=== PATIENT | male | born 1935 | race Caucasian/White ===

== ENCOUNTER 2017-04-11 14:30 | Outpatient (CLI) | payer MEDICARE ==
--- NOTE | 2017-04-12 16:17 | XRAY Report ---
CHEST, TWO VIEWS: 04/11/2017 HISTORY: Wheezing and cough. COMPARISON: 02/08/2016 FINDINGS: The heart size is normal. The lungs are clear. There is no pleural fluid or pneumothorax. There is degenerative change in the thoracic spine with an accentuated thoracic kyphosis. The aorta is tortuous. IMPRESSION: CLEAR LUNGS. NO ACUTE FINDINGS OR SIGNIFICANT INTERVAL CHANGE SINCE 02/08/2016. JOB #: [id number] EXT JOB #: [id number] [facility]
== END 2017-04-11 14:31 | disposition home or self-care (01) ==
LOC: DI.S 14:30
PROVIDERS: ATTEND Nurse Practitioner Family
DX: R06.02 Shortness of breath (principal)
CPT/HCPCS: 71020

== ENCOUNTER 2017-05-13 00:05 | Emergency (ER) | payer MEDICARE ==
[2017-05-13 00:50] LABS: BASOPHILS # (AUTO) 0.2 10^3/uL (0.0-0.1); BASOPHILS % (AUTO) 2.5 %; EOSINOPHILS # (AUTO) 0.4 10^3/uL (0.0-0.7); EOSINOPHILS % (AUTO) 4.5 %; HGB - HEMOGLOBIN 13.3 g/dL (14.0-18.0); LYMPHOCYTES % (AUTO) 20.4 %; MEAN CORPUSCULAR HEMOGLOBIN 28.3 pg (27.0-31.0); MEAN CORPUSCULAR HGB CONC 33.7 g/dL (32.0-36.0); MEAN PLATELET VOLUME 7.7 fL (7.4-11.4); MONOCYTES # (AUTO) 0.8 10^3/uL (0.0-1.0); MONOCYTES % (AUTO) 8.2 %; NEUTROPHILS # (AUTO) 6.1 10^3/uL (1.5-6.6); NEUTROPHILS % (AUTO) 64.4 %; PLT - PLATELET COUNT 178 10^3/uL (130-450); RED BLOOD COUNT 4.68 10^6/uL (4.70-6.10); WHITE BLOOD COUNT 9.6 x10^3/uL (4.8-10.8)
[2017-05-13 01:02] LABS: ALBUMIN 3.7 g/dL (3.2-5.5); ALBUMIN/GLOBULIN RATIO 1.1 (1.0-2.2); BILIRUBIN,TOTAL 0.7 mg/dL (0.2-1.0); CALCIUM 8.3 mg/dL (8.5-10.3); CREATININE 1.6 mg/dL (0.6-1.2); URIC ACID 9.6 mg/dL (2.6-7.2)
[2017-05-13] MEDS ORDERED: INDOMETHACIN 25 MG CAPSULE PO STA (01:12)
--- NOTE | 2017-05-13 01:31 | ED Physician Documentation ---
PD HPI LOWER EXT INJURY - Stated complaint Stated Complaint: KRISTIN FOOT SWELLING - Chief complaint Chief Complaint: Ext Problem - History obtained from History obtained from: Patient - History of Present Illness PD HPI LOW EXT INJURY LOCATION: Left, Foot, Toe Where injury occurred: Home Timing - onset: Yesterday Timing - details: Gradual onset, Still present Worsened by: Moving, Palpating Similar symptoms before: Work up / diagnostics, Treatment Recently seen: Not recently seen - Additional information Additional information: Patient is and 82 year old male with a history of gout who is presenting to the emergency department for right foot pain and swelling, especially in the first digit. patient states that it started yesterday and has become progressively worse. Patient states that he thought it might be gout but the swelling in his foot was worse than he had seen before. patient denies any fever or trauma. Review of Systems Constitutional: denies: Fever, Chills Eyes: reports: Reviewed and negative Ears: reports: Reviewed and negative Nose: reports: Reviewed and negative Cardiac: denies: Chest pain / pressure, Palpitations, Calf pain Respiratory: denies: Dyspnea, Cough, Wheezing GI: denies: Abdominal Pain, Nausea, Vomiting : reports: Reviewed and negative Skin: reports: Reviewed and negative Musculoskeletal: reports: Joint pain, Extremity swelling, Joint swelling Neurologic: denies: Generalized weakness, Focal weakness, Numbness Immunocompromised: denies: Immunocompromised PD PAST MEDICAL HISTORY - Past Medical History Past Medical History: Yes Cardiovascular: Hypertension, High cholesterol, Angina Respiratory: None Neuro: None Endocrine/Autoimmune: Type 2 diabetes GI: GERD, Other : None HEENT: None, Chronic vision loss Psych: None Musculoskeletal: Other Derm: Rosacea - Past Surgical History Past Surgical History: Yes General: Colonoscopy, Other Ortho: Spine surgery HEENT: Tonsil/Adenoidectomy - Present Medications Home Medications: Ambulatory Orders Medication Instructions Recorded Confirmed Aspirin [Aspir 81] 81 mg PO DAILY 05/15/15 05/19/15 Atorvastatin [Lipitor] 80 mg PO DAILY 05/15/15 05/19/15 Insulin Glargine,Hum.rec.anlog 30 units SQ DAILY 05/15/15 05/19/15 [Lantus Solostar] Insulin Lispro [Humalog] 7 units SQ QID 05/15/15 05/19/15 Lisinopril 20 mg PO DAILY 05/15/15 05/19/15 Omeprazole 20 mg PO DAILY 05/15/15 05/19/15 hydroCHLOROthiazide 12.5 mg PO DAILY 05/15/15 05/19/15 [Hydrochlorothiazide] Moxifloxacin HCl [Vigamox] 1 drop LEFTEYE DAILY 02/08/16 02/08/16 Nepafenac [Ilevro] 1 drop EACHEYE DAILY 02/08/16 02/08/16 prednisoLONE 1% OPHTH DROPS [Pred 1 drops EACHEYE .DAILY-BID 02/08/16 02/08/16 Forte 1% Ophth Drops] Acetaminophen [Tylenol] 650 mg PO Q4HR PRN #0 tablet 02/09/16 Prednisolone 1% Ophth Drops [Pred 1 drops RIGHTEYE DAILY 02/09/16 Forte 1% Ophth Drops] Indomethacin 50 mg PO TID #14 capsule 05/13/17 - Allergies Allergies/Adverse Reactions: Allergies Allergy/AdvReac Type Severity Reaction Status Date / Time Beta-Blockers Allergy Unknown Verified 05/13/17 00:20 (Beta-Adrenergic Bloc ezetimibe [From Vytorin] Allergy Unknown Verified 05/13/17 00:20 simvastatin [From Vytorin] Allergy Unknown Verified 05/13/17 00:20 - Social History Does the pt smoke?: No Smoking Status: Never smoker Does the pt drink ETOH?: No Does the pt have substance abuse?: No - Immunizations Immunizations are current?: Yes - POLST Patient has POLST: No PD ED PE NORMAL - Vitals Vital signs reviewed: Yes - General General: Alert and oriented X 3, Well developed/nourished - HEENT HEENT: Atraumatic, PERRL - Neck Neck: Supple, no meningeal sign - Cardiac Cardiac: RRR, No murmur - Respiratory Respiratory: No respiratory distress - Abdomen Abdomen: Soft - Neuro Neuro: Alert and oriented X 3, No motor deficit, No sensory deficit - Psych Psych: Normal mood PD ED PE EXPANDED - Extremities Extremities: Left foot (swelling of left foot), Left toe(s) (erythema, tenderness and swelling of 1st digit.) Results - Vitals Vitals: Vital Signs - 24 hr 05/13/17 00:18 Temperature 36.6 C Heart Rate 61 Respiratory 17 Rate Blood Pressure 169/63 H O2 Saturation 96 Oxygen O2 Source Room air - Labs Labs: Laboratory Tests 05/13/17 05/13/17 00:45 00:45 WBC 9.6 RBC 4.68 L Hgb 13.3 L Hct 39.3 L MCV 84.0 MCH 28.3 MCHC 33.7 RDW 15.0 Plt Count 178 MPV 7.7 Neut # 6.1 Lymph # 2.0 Gillespie # 0.8 Eos # 0.4 Baso # 0.2 H Absolute Nucleated RBC 0.00 Nucleated RBC % 0.0 Sodium 135 Potassium 4.2 Chloride 106 Carbon Dioxide 22 Anion Gap 7.0 BUN 38 H Creatinine 1.6 H Estimated GFR (MDRD) 42 L Glucose 126 H Uric Acid 9.6 H Calcium 8.3 L Total Bilirubin 0.7 AST 17 ALT 15 Alkaline Phosphatase 102 Total Protein 7.0 Albumin 3.7 Globulin 3.3 Albumin/Globulin Ratio 1.1 Lipase 43 PD MEDICAL DECISION MAKING - ED course Complexity details: reviewed old records, reviewed results, re-evaluated patient , considered differential, d/w patient ED course: Patient was seen and examined at bedside. labs were drawn. Patient's lab and physical exam findings were consistent with gout. patient was treated with indomethacin. patient required no further work up at this time and was stable for discharge with outpatient follow up. Departure - Departure Disposition: Home, Self Care Clinical Impression: Gout attack Condition: Good Instructions: ED Diet Gout, Gout Attack Tx Follow-Up: SHLOMO PERRIN MD [Primary Care Provider] - Within 3 Days Prescriptions: Indomethacin 50 mg PO TID #14 capsule Comments: Your symptoms today are being caused by gout. You have been started on a nsaid but with your history of diabetes you will have to limit the duration for which you are using it. You should stay well hydrated and avoid red meats and alcohol. You should call your doctor on monday to schedule a follow up appointment. You should keep your legs elevated to help reduce the swelling.
[2017-05-13 01:47] VITALS: BP 151/80
== END 2017-05-13 01:47 | disposition home or self-care (01) ==
LOC: ED 00:05
DX: M10.9 Gout, unspecified (principal); I10 Essential (primary) hypertension; E78.00 Pure hypercholesterolemia, unspecified; Z79.82 Long term (current) use of aspirin
CPT/HCPCS: 36415; 80053; 83690; 84550; 85025; 99283; A9270

== ENCOUNTER 2018-08-23 15:48 | Outpatient (CLI) | payer MEDICARE ==
--- NOTE | 2018-08-24 08:08 | Ultrasound Report ---
Reason: HEADACHE Procedure Date: 08/23/2018 Accession Number: [id number] / [id number] Procedure: US - Carotid Doppler Complete CPT Code: FULL RESULT: EXAM: BILATERAL CAROTID AND VERTEBRAL ARTERY DUPLEX DOPPLER ULTRASOUND: EXAM DATE: 08/23/2018 03:30 PM CLINICAL HISTORY: Headache. COMPARISON: CAROTID DOPPLER COMPLETE 02/08/2016 4:02 PM. TECHNIQUE: Grayscale imaging, color Doppler, and duplex spectral Doppler were used to evaluate the carotid and vertebral arteries bilaterally. Static images were obtained. FINDINGS: No obstructing plaque is identified in the right or left common or internal carotid arteries. Normal antegrade flow is present in bilateral vertebral arteries. VELOCITIES (cm/sec): RIGHT: CCA mid: PSV 76.2 cm/sec CCA dist: PSV 75.6 cm/sec ICA prox: PSV 58.1 cm/sec, EDV 13.5 cm/sec ICA mid: PSV 90.6 cm/sec, EDV 25.7 cm/sec ICA dist: PSV 70 cm/sec, EDV 18.3 cm/sec ECA: PSV 108.1 cm/sec Vert: PSV 41.2 cm/sec ICA/CCA: 1.2 LEFT: CCA mid: PSV 90.2 cm/sec CCA dist: PSV 78.4 cm/sec ICA prox: PSV 257.1 cm/sec, EDV 49.7 cm/sec ICA mid: PSV 134.2 cm/sec, EDV 20 cm/sec ICA dist: PSV 93 cm/sec, EDV 18 cm/sec ECA: PSV 176.3 cm/sec Vert: PSV 33.6 cm/sec ICA/CCA: 3.3 ICA diameter stenosis: Right: <50% by velocity and <70% by NASCET criteria. Left: <50% by velocity and greater than 70% by NASCET criteria. IMPRESSION: 1. There is a hemodynamically significant left internal carotid stenosis which is greater than 70%. 2. No evidence of extracranial hemodynamically stenosis of the right extracranial carotid system. 3. Bilateral vertebral artery antegrade flow. General Recommendations: Stenosis =50% ICA - Follow-up ultrasound 6-12 months Stenosis <50% ICA - High Risk Patient with plaque - Follow-up ultrasound 1-2 years Normal Study but High Risk Patient - Follow-up ultrasound 3-5 years Management recommendations and diagnostic criteria are based on current IAC endorsed standards in Carotid Artery Stenosis: Grayscale and Doppler Ultrasound Diagnosis. Validated velocity measurements with angiographic measurements and velocity criteria are extrapolated from diameter data as defined by the Society of Radiologists in Ultrasound Consensus Conference Radiology 2003; 229;340-346. RADIA
== END 2018-08-23 15:49 | disposition home or self-care (01) ==
LOC: DI 15:48
PROVIDERS: ATTEND Internal Medicine
DX: I65.22 Occlusion and stenosis of left carotid artery (principal); R51 Headache
CPT/HCPCS: 93880

== ENCOUNTER 2018-11-12 07:44 | Outpatient (CLI) | payer MEDICARE ==
[2018-11-12] MEDS ORDERED: IOVERSOL 320 100 ML VIAL IVP ONE ×2 (07:57→09:07)
[2018-11-12 08:11] LABS: CREATININE 1.7 mg/dL (0.6-1.2)
--- NOTE | 2018-11-12 11:02 | CT Report ---
Reason: OCCLUSION AND STENOSIS OF UNSPECIFIED CAROTID DOROTEO Procedure Date: 11/12/2018 Accession Number: [id number] / [id number] Procedure: CT - ANGIO NECK W/WO CPT Code: FULL RESULT: EXAM: CT ANGIOGRAM HEAD AND NECK. CT SCAN HEAD WITHOUT AND WITH CONTRAST. EXAM DATE: 11/12/2018 08:40 AM. CLINICAL HISTORY: Occlusion and stenosis of unspecified carotid artery. Severe left internal carotid artery stenosis at carotid bifurcation noted on Doppler ultrasound. COMPARISON: HEAD W/O 02/08/2016 7:39 PM. BRAIN W/O 02/08/2016 5:50 PM. BRAIN ANGIO W/O 02/08/2016 5:24 PM. CAROTID DOPPLER COMPLETE 08/23/2018 3:13 PM. TECHNIQUE: Routine axial helical CTA imaging was performed from the aortic arch through the [place] of [place]. Routine axial CT imaging of the head was performed prior to and following contrast administration. Reconstructions: Routine multiplanar 3D MIP reconstructions. IV contrast: OPTI 320 80 mL. NASCET Criteria are used for stenosis measurements. In accordance with CT protocol optimization, one or more of the following dose reduction techniques were utilized for this exam: automated exposure control, adjustment of mA and/or KV based on patient size, or use of iterative reconstructive technique. FINDINGS: CT SCAN HEAD: Parenchyma: No intraparenchymal hemorrhage. No evidence of mass, midline shift, or CT findings of acute infarction. Hines-white differentiation is distinct. Mild patchy white matter hypodensity is noted. No abnormal intracranial enhancement. Extra-axial Spaces: Normal for age. No subdural or epidural collections identified. Ventricles: Normal in size and position. Sinuses and Orbits: Imaged paranasal sinuses, orbits, and mastoids show no significant abnormality. Bones: No evidence of fracture or calvarial defect. Other: Mild atherosclerotic calcification is seen involving intracranial ICA and vertebral arteries. CT ANGIOGRAM EXTRACRANIAL CIRCULATION: Moderate tortuosity with atherosclerotic intimal irregularity and calcification is seen in the partially visualized aortic arch. Note is made of conjoined origin of right brachiocephalic and left common carotid arteries. Mild tortuosity and atherosclerotic calcification is seen involving the great vessels off the arch. The great vessels are patent. Right Carotid: The common carotid, internal carotid, and external carotid arteries are widely patent. No dissection. Punctate atherosclerotic calcification is seen in the distal CCA without significant stenosis. Mild atherosclerotic intimal thickening and calcification is seen at the CCA bifurcation and proximal ICA, without significant stenosis. Left Carotid: The CCA is patent. Marked atherosclerotic intimal thickening with moderate peripheral calcification is seen at the CCA bifurcation and proximal ICA. Luminal irregularity and narrowing to 1.2 mm is seen. Severe, 75%, stenosis is present. No dissection. The ECA is patent. Vertebrals: The vertebral arteries are codominant. Right vertebral artery: Mild intimal thickening and punctate calcification is seen at the origin. Mild, 35%, stenosis is present. Otherwise patent. No dissection. Left vertebral artery: Mild atherosclerotic intimal thickening is seen at the origin. Mild, 40%, stenosis is seen. Otherwise patent. No dissection. CT ANGIOGRAM INTRACRANIAL CIRCULATION: Unremarkable. No stenoses or aneurysms of the visualized vessels. No large vessel occlusion. Bilateral ICA: Mild to moderate atherosclerotic calcification is seen in the cavernous and proximal supracavernous ICA. There likely is mild stenosis. No significant stenosis is present. Right vertebral artery: Mild atherosclerotic intimal thickening and irregularity with punctate calcification is seen in the proximal to mid V4 segment. Moderate, 55%, stenosis is seen. The right pica arises distal to this and is patent. Note is made of fenestrated or duplicated distal V4 segment extending over an approximate 10 mm length. Left vertebral artery: Mild atherosclerotic calcification is seen in the mid V4 segment. Mild, 40%, stenosis is present. The left pica arises distal to this and is patent. Bilateral P-comm are patent. The right is larger than the left. The A-comm is small in caliber and unremarkable. The dural venous sinuses are patent. Other: The visualized bones, soft tissues, and lung apices are unremarkable. Mild spondylosis is noted throughout the cervical spine. IMPRESSION: CT SCAN HEAD: 1. No acute intracranial abnormality. No abnormal enhancement. 2. Patchy white matter hypodensity is seen in the cerebral hemispheres. This is nonspecific. This can be seen secondary to small vessel ischemic change. CT ANGIOGRAM NECK: 1. Moderate tortuosity and atherosclerotic change involving the aortic arch. 2. Right carotid circulation: Patent. Mild atherosclerotic change without significant stenosis. 3. Left carotid circulation: Moderate to marked atherosclerotic change. Severe, 75%, stenosis in the proximal ICA. 4. Bilateral vertebral arteries: Codominant. Mild, 35%-40%, stenosis at the origin. Otherwise patent. CT ANGIOGRAM HEAD: 1. Unremarkable CTA of the head. No aneurysm. No significant stenosis. No large vessel occlusion. 2. Bilateral carotid arteries: Atherosclerotic change. Mild stenosis. 3. Right vertebral artery: Atherosclerotic change at junction of proximal and mid V4 segment. Moderate, 55%, stenosis. Note is made of fenestrated or duplicated distal V4 segment. 4. Left vertebral artery: Atherosclerotic change in mid V4 segment. Mild, 40%, stenosis. RADIA
== END 2018-11-12 07:45 | disposition home or self-care (01) ==
LOC: DI 07:44
PROVIDERS: ATTEND Internal Medicine
DX: I25.10 Atherosclerotic heart disease of native coronary artery without angina pectoris (principal); I65.22 Occlusion and stenosis of left carotid artery; I65.01 Occlusion and stenosis of right vertebral artery; Q25.46 Tortuous aortic arch
CPT/HCPCS: 36415; 70496; 70498; 82565; Q9967

== ENCOUNTER 2019-10-11 09:16 | Outpatient (CLI) | payer MEDICARE ==
--- NOTE | 2019-10-11 12:29 | XRAY Report ---
Reason: PAIN OF RIGHT SHOULDER JOINT Procedure Date: 10/11/2019 Accession Number: [id number] / [id number] Procedure: XRS - Shoulder 3 View RT CPT Code: Final Report FULL RESULT: PROCEDURE: Shoulder 3 View RT INDICATIONS: PAIN OF RIGHT SHOULDER JOINT TECHNIQUE: 3 views of the right shoulder were obtained. COMPARISON: None. FINDINGS: No visualized fractures or dislocations. Sebaceous osseous lesions. There is severe acromioclavicular degenerative narrowing. Slight humeral head deformity is present suggestive of prior Hill-Sachs injury. IMPRESSION: Degenerative changes without visualized acute fracture. Reviewed by: Zahra Ortega MD on 10/11/2019 12:27 PM PDT Approved by: Zahra Ortega MD on 10/11/2019 12:27 PM PDT Station ID: [id number]
== END 2019-10-11 09:17 | disposition home or self-care (01) ==
LOC: DI.S 09:16
PROVIDERS: ATTEND Nurse Practitioner Family
DX: M19.011 Primary osteoarthritis, right shoulder (principal)

== ENCOUNTER 2019-11-03 08:26 | Outpatient (CLI) | payer MEDICARE | END 2019-11-03 08:27 | disposition critical access hospital (66) | LOC: EMS 08:26 | PROVIDERS: ATTEND Surgery | DX: R53.1 Weakness (principal) | CPT/HCPCS: A0425; A0429 ==

== ENCOUNTER 2019-11-03 09:04 | Emergency (ER) | payer MEDICARE ==
--- NOTE | 2019-11-03 09:14 | ED Physician Documentation ---
PD HPI FOCAL NEURO - Stated complaint Stated Complaint: TIA - History obtained from History obtained from: Patient - History of Present Illness Timing - onset: Enter time (829), Today Timing - duration: Minutes Timing - details: Abrupt onset, Now resolved Severity of deficit: Moderate Weakness: Face, Arm, Hand, Leg, Foot, Right Numbness: No: Face, Arm, Hand, Leg, Foot, Right, Left Associated symptoms: No: Headache, Nausea / vomiting, Seizure, Syncope, Fall, Head injury, Chest pain, Neck pain, Back pain, Fever Contributing factors: negative: Anticoagulated Baseline status: positive: A&OX3, ambulatory, indep Similar symptoms before: Has not had sx before Recently seen: Not recently seen - Additional information Additional information: Previously well 84-year-old male was well this morning when he awoke at 730 he got into a hot shower when he got out of the shower he began to try to shave and realized that he had a deficit of movement in his right arm and you had some difficulty walking. He did not have difficulty speaking. He called 911 and after arrival to of the ambulance his symptoms began to improve. He arrives with symptoms nearly resolved. He indicates he has never had these specific symptoms previously. He has been diagnosed at one time with a TIA he believes this was related to his use of a beta-kelly and he spent some time in the intensive care unit. Review of Systems Constitutional: denies: Fever Eyes: denies: Decreased vision Ears: denies: Ear pain Nose: denies: Rhinorrhea / runny nose, Congestion Throat: denies: Sore throat Cardiac: denies: Chest pain / pressure, Palpitations Respiratory: denies: Dyspnea, Cough GI: denies: Abdominal Pain, Nausea, Vomiting : denies: Dysuria, Frequency Skin: denies: Rash Musculoskeletal: denies: Neck pain, Back pain, Extremity pain Neurologic: reports: Focal weakness. denies: Generalized weakness, Numbness, Difficulty speaking, Altered mental status, Headache, Head injury, LOC PD PAST MEDICAL HISTORY - Past Medical History Cardiovascular: Hypertension, High cholesterol, Angina Respiratory: None Endocrine/Autoimmune: Type 2 diabetes GI: GERD, Other : None HEENT: None, Chronic vision loss Psych: None Musculoskeletal: Other Derm: Rosacea - Past Surgical History Past Surgical History: Yes General: Colonoscopy, Other Ortho: Spine surgery HEENT: Tonsil/Adenoidectomy - Present Medications Home Medications: Ambulatory Orders Medication Instructions Recorded Confirmed Aspirin [Aspir 81] 81 mg PO DAILY 05/15/15 05/19/15 Atorvastatin [Lipitor] 80 mg PO DAILY 05/15/15 05/19/15 Insulin Glargine,Hum.rec.anlog 30 units SQ DAILY 05/15/15 05/19/15 [Lantus Solostar] Insulin Lispro [Humalog] 7 units SQ QID 05/15/15 05/19/15 Lisinopril 20 mg PO DAILY 05/15/15 05/19/15 Omeprazole 20 mg PO DAILY 05/15/15 05/19/15 hydroCHLOROthiazide 12.5 mg PO DAILY 05/15/15 05/19/15 [Hydrochlorothiazide] Moxifloxacin HCl [Vigamox] 1 drop LEFTEYE DAILY 02/08/16 02/08/16 Nepafenac [Ilevro] 1 drop EACHEYE DAILY 02/08/16 02/08/16 prednisoLONE 1% OPHTH DROPS [Pred 1 drops EACHEYE .DAILY-BID 02/08/16 02/08/16 Forte 1% Ophth Drops] Acetaminophen [Tylenol] 650 mg PO Q4HR PRN #0 tablet 02/09/16 Prednisolone 1% Ophth Drops [Pred 1 drops RIGHTEYE DAILY 02/09/16 Forte 1% Ophth Drops] Indomethacin 50 mg PO TID #14 capsule 05/13/17 - Allergies Allergies/Adverse Reactions: Allergies Allergy/AdvReac Type Severity Reaction Status Date / Time Beta-Blockers Allergy Unknown Verified 11/03/19 09:15 (Beta-Adrenergic Bloc ezetimibe [From Vytorin] Allergy Unknown Verified 11/03/19 09:15 simvastatin [From Vytorin] Allergy Unknown Verified 11/03/19 09:15 - Social History Does the pt smoke?: No Smoking Status: Never smoker Does the pt drink ETOH?: No Does the pt have substance abuse?: No - Immunizations Immunizations are current?: Yes - POLST Patient has POLST: No PD ED PE NORMAL - Vitals Vital signs reviewed: Yes (hypertensive systolic) - General General: Alert and oriented X 3, No acute distress, Well developed/nourished - HEENT HEENT: Atraumatic, PERRL, EOMI - Neck Neck: Supple, no meningeal sign, No bony TTP - Cardiac Cardiac: RRR, Other (2/6n holosystolic murmer at LSB) - Respiratory Respiratory: No respiratory distress, Clear bilaterally - Abdomen Abdomen: Soft, Non tender - Back Back: No CVA TTP, No spinal TTP - Derm Derm: Normal color, Warm and dry, No rash - Extremities Extremities: No deformity, No edema, No calf tenderness / cord - Neuro Neuro: Alert and oriented X 3, arbitrator 2-12 intact, No sensory deficit, Normal speech, Other (There is weakness to the right lower ext only. ) Eye Opening: Spontaneous Motor: Obeys Commands Verbal: Oriented GCS Score: 15 - Psych Psych: Normal mood, Normal affect NIHSS - Time Time: 09:40 - Level of Consciousness Level of consciousness: (0) Alert, Keenly responsive LOC Questions: (0) Answers both Q's correct LOC Commands: (0) Performs both correctly - Gaze Best Gaze: (0) Normal - Visual Visual: (0) No loss - Facial Palsy Facial Palsy: (0) Normal, symmetrical movement - Motor Arms (both separate) Motor Arm (right): (0) No drift Motor Arm (left): (0) No drift - Motor Legs (both separate) Motor Leg (right): (1) Drift Motor Leg (left): (0) No drift - Limb Ataxia Limb Ataxia: (0) Absent - Sensory Sensory: (0) Normal - Best Language Best Language: (0) No aphasia - Dysarthria Dysarthria: (0) Normal - Extinction and Inattention (formally neg Extinction and inattention: (0) No abnormality - Total Score/Results Total Score/Result: 1 Results - Vitals Vitals: Vital Signs - 24 hr 11/03/19 11/03/19 11/03/19 09:15 09:20 09:44 Temperature 36.6 C 36.6 C Heart Rate 68 68 63 Respiratory 18 18 15 Rate Blood Pressure 235/89 H 235/89 H 190/84 H O2 Saturation 97 97 96 11/03/19 11:19 Temperature Heart Rate 61 Respiratory 14 Rate Blood Pressure 168/80 H O2 Saturation 94 Oxygen O2 Source Room air - EKG (time done) 0929 Rate: Rate (enter#) (62) Rhythm: NSR Intervals: Prolonged LA Ischemia: Q waves Compare to prior EKG: Unchanged from prior EKG (looks nearly identicle to the tracing from 02-08-2016) Computer interpretation: Agree with computer - Labs Labs: Laboratory Tests 11/03/19 11/03/19 11/03/19 09:49 09:49 09:49 WBC 8.4 RBC 4.82 Hgb 14.7 Hct 43.5 MCV 90.2 MCH 30.5 MCHC 33.8 RDW 13.0 Plt Count 219 MPV 9.9 Neut # (Auto) 6.1 Lymph # (Auto) 1.3 [place] # (Auto) 0.5 Eos # (Auto) 0.3 Baso # (Auto) 0.1 Absolute Nucleated RBC 0.00 Nucleated RBC % 0.0 Sodium 137 Potassium 4.3 Chloride 105 Carbon Dioxide 22 Anion Gap 10.0 BUN 36 H Creatinine 1.5 H Estimated GFR (MDRD) 45 L Glucose 119 H Lactic Acid 0.8 Calcium 8.8 Total Bilirubin 1.1 H AST 20 ALT 23 Alkaline Phosphatase 120 Total Protein 6.5 L Albumin 3.7 Globulin 2.8 Albumin/Globulin Ratio 1.3 Lipase 67 H - Rads (name of study) CTA neck Radiology: Prelim report reviewed (Impression: 1. Interval progression of a severe proximal left internal carotid artery stenosis with soft plaque. Stenosis measures approximately 90%. Right internal internal carotid artery widely patent. 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 Moderate left V4 segment vertebral arter), EMP read indepedently, See rad report CTA head Radiology: Prelim report reviewed, EMP read indepedently, See rad report Procedures - IVC sono (time) 0940 Bedside IVC sono: IVC measures (cm) (1.02), IVC collapsed c insp (cm) (complete), Dehydration (est 1-2 liter deficit) PD MEDICAL DECISION MAKING - ED course Complexity details: reviewed old records, reviewed results, re-evaluated patient, considered differential, d/w patient ED course: 84-year-old male with acute right paty-paresis without dysarthria or a aphasia has had near complete recovery of his symptoms here in the emergency department. He is found to have significant left internal carotid stenosis which has progressed and he is found to be dehydrated on interrogation the inferior vena cava. He is administered intravenous saline. I suspect the patient was dehydrated, got to the hot shower, reduced his vascular volume and this resulted in TIA. The patient has been evaluated here previously for TIA and has known disease in the left carotid which has progressed. We have no further specific interventions to provide to the patient from our hospital and I have consulted the hospitalist at [facility] in [place]. Dr. Harp Graciously agrees to care for the patient in the hospital and accepts the patient in transfer. He has minimal findings in the right leg with decreased strength. Departure - Departure Disposition: 02 Transfer Acute Care Hosp Clinical Impression: Cerebrovascular accident (CVA) Qualifiers: CVA mechanism: unspecified Qualified Code(s): I63.9 - Cerebral infarction, unspecified
[2019-11-03] MEDS ORDERED: IOVERSOL 320 100 ML VIAL IVP ONE ×2 (09:39→09:46)
[2019-11-03 09:56] LABS: BASOPHILS # (AUTO) 0.1 10^3/uL (0.0-0.1); BASOPHILS % (AUTO) 1.2 %; EOSINOPHILS # (AUTO) 0.3 10^3/uL (0.0-0.7); EOSINOPHILS % (AUTO) 3.9 %; HGB - HEMOGLOBIN 14.7 g/dL (14.0-18.0); LYMPHOCYTES # (AUTO) 1.3 10^3/uL (1.5-3.5); LYMPHOCYTES % (AUTO) 15.6 %; MEAN CORPUSCULAR HEMOGLOBIN 30.5 pg (27.0-31.0); MEAN CORPUSCULAR HGB CONC 33.8 g/dL (32.0-36.0); MEAN CORPUSCULAR VOLUME 90.2 fL (80.0-94.0); MEAN PLATELET VOLUME 9.9 fL (7.4-11.4); MONOCYTES # (AUTO) 0.5 10^3/uL (0.0-1.0); MONOCYTES % (AUTO) 6.3 %; NEUTROPHILS # (AUTO) 6.1 10^3/uL (1.5-6.6); NEUTROPHILS % (AUTO) 72.8 %; PLT - PLATELET COUNT 219 10^3/uL (130-450); RED BLOOD COUNT 4.82 10^6/uL (4.70-6.10); WHITE BLOOD COUNT 8.4 x10^3/uL (4.8-10.8)
[2019-11-03] MEDS ORDERED: SODIUM CHLORIDE 0.9% 1,000 ML IV STA (10:05)
[2019-11-03 10:09] LABS: ALBUMIN 3.7 g/dL (3.2-5.5); ALBUMIN/GLOBULIN RATIO 1.3 (1.0-2.2); BILIRUBIN,TOTAL 1.1 mg/dL (0.2-1.0); CALCIUM 8.8 mg/dL (8.5-10.3); CREATININE 1.5 mg/dL (0.6-1.2); TOTAL PROTEIN 6.5 g/dL (6.7-8.2)
--- NOTE | 2019-11-03 10:12 | CT Report ---
PROCEDURE: ANGIO HEAD W/WO INDICATIONS: Right sided deficit CONTRAST: IV CONTRAST: Optiray 320 ml: 80 PO CONTRAST: *NO PO CONTRAST TECHNIQUE: Precontrast 4.5 mm thick angled axial sections acquired from the foramen magnum to the vertex. Afte r the administration of intravenous contrast, 1 mm thick sections acquired through the [place] is. Postcontrast 4.5 mm thick sections then re-acquired from the foramen magnum to the vertex. 3-di mensional pbosymk-ltvxfiltx-pomsyvimcn (MIP) and/or volume rendering reformats were acquired of the c entral intracranial vasculature. For radiation dose reduction, the following was used: automated ex posure control, adjustment of mA and/or kV according to patient size. COMPARISON: CT Angio Head with and without contrast dated 11/12/2018, CT Angio Neck from today FINDINGS: Image quality: Excellent. Anterior circulation: Extensive bilateral cavernous carotid atherosclerotic calcifications without s ignificant stenosis. No intraluminal filling defects in the intracranial arterial vessels identified. Intracranial internal carotid arteries are normal in size and flow. The flow within the paired ante rior cerebral arteries is normal and symmetric. The flow within the middle cerebral arteries is norm al and symmetric. The anterior communicating artery is seen. No aneurysms are seen. Posterior circulation: Again noted is significant atherosclerotic narrowing of the V4 segment of the right vertebral artery. Stenosis is approximately 70%. Previous report of a possible fenestrated dist al right vertebral artery likely represents the presence of a tortuous posterior inferior cerebellar artery paralleling the vertebral artery. The distal left vertebral artery has a moderate stenosis, as before. Basilar artery is patent. Posterior cerebral arteries are unremarkable. No aneurysms are see n. CSF spaces: Ventricles are normal in size and shape. Basal cisterns are patent. No extra-axial flu id collections. Brain: No midline shift. No intracranial bleeds or masses. Hines-white matter interface appears int act. Age-related volume loss and mild small vessel ischemic change. Skull and face: Calvarium and facial bones appear intact, without suspicious lesions. Sinuses: Visualized sinuses and mastoids are clear. IMPRESSION: 1. Age-related volume loss and mild small vessel ischemic change. 2. No evidence acute stroke, hemorrhage, or mass. 3. No large vessel occlusion. No focal filling defect noted in the intracranial circulation. 4. Bilateral distal vertebral artery stenotic disease, right greater than left. Right distal vertebra l artery stenosis is severe. 5. Please refer to separate report for CTA Neck findings. The CTA Neck report describes interval prog ression of a left internal carotid artery stenosis, now 90%. Above discussed with UZAIR BURRELL at the time of dictation on 11/03/19 at 1008 hours PDT. Reviewed by: Rm Mims MD on 11/03/2019 9:11 AM [facility] Approved by: Rm Mims MD on 11/03/2019 9:11 AM [facility] Station ID: [id number]
--- NOTE | 2019-11-03 10:12 | CT Report ---
PROCEDURE: ANGIO NECK W INDICATIONS: R sided deficit CONTRAST: IV CONTRAST: Optiray 320 ml: 80 PO CONTRAST: *NO PO CONTRAST TECHNIQUE: After the administration of intravenous contrast, 1.5 mm axial sections acquired from the aortic arch to the [place]. Coronal 3-D maximum intensity projection (MIP) and/or volume rendering ref ormats were then performed. For radiation dose reduction, the following was used: automated exposur e control, adjustment of mA and/or kV according to patient size. COMPARISON: CTA neck dated 11/12/2018, CTA head from today. FINDINGS: Image quality: Excellent. Carotid system: The great vessels demonstrate a conventional anatomy as they arise from the aortic a rch. The origins of the common carotid arteries appear patent. The common carotid arteries demonstr ate normal calibers and courses. There has been interval progression of a severe left internal caroti d artery origin stenosis with soft plaque. It was previously estimated at approximately 75%. It is no w approximately 90%. Reference image 107/4 (coronal reconstruction). The right internal carotid arter y is widely patent. Posterior circulation: The origins of the vertebral arteries appear patent. There is a stenosis of t he V4 segment of the right vertebral artery which is approximately 70%. There is a moderate V4 segmen t left vertebral artery stenosis. They join to form a normal appearing basilar artery. Soft tissues: Visualized neck soft tissues demonstrate no suspicious abnormalities. The thyroid gla nd is normal in size. Bones: No suspicious bony lesions. Visualized cervical spine appears normally aligned. IMPRESSION: 1. Interval progression of a severe proximal left internal carotid artery stenosis with soft plaque. Stenosis measures approximately 90%. 2. Right internal carotid artery widely patent. 3. 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 Moderate left V4 segment vertebral artery steno sis. 4. Please refer to a separate report for CTA Head findings. Above discussed with UZAIR BURRELL at the time of dictation on 11/03/19 at 1008 hours PDT. The estimate of stenosis included in the report of the imaging study was calculated using the NASCET method Reviewed by: Rm Mims MD on 11/03/2019 9:11 AM [facility] Approved by: Rm Mims MD on 11/03/2019 9:11 AM [facility] Station ID: [id number]
[2019-11-03 13:19] LABS: BILIRUBIN,URINE NEGATIVE (NEGATIVE); GLUCOSE, URINE (UA) NEGATIVE (NEGATIVE); KETONES,URINE (UA) NEGATIVE (NEGATIVE); LEUKOCYTE ESTERASE, URINE NEGATIVE (NEGATIVE); NITRITE,URINE NEGATIVE (NEGATIVE); OCCULT BLOOD,URINE TRACE-INTA (NEGATIVE); PH,URINE 5.5 PH (5.0-7.5); PROTEIN,URINE 100 mg/dL (NEGATIVE); UROBILINOGEN,URINE 0.2 (NORMAL) E.U./dL (NORMAL)
[2019-11-03 13:30] LABS: CLARITY,URINE CLEAR (CLEAR)
[2019-11-03 13:33] LABS: RBC,URINE 0-5 /HPF (0-5)
[2019-11-03 13:34] LABS: BACTERIA,URINE Rare /HPF (None Seen); SQUAMOUS EPITHELIAL CELL,UR RARE Squamous (<= Few)
[2019-11-03 13:58] VITALS: BP 184/98
== END 2019-11-03 13:58 | disposition short-term general hospital (02) ==
LOC: EDUNIT# → ED 09:04
DX: I63.232 Cerebral infarction due to unspecified occlusion or stenosis of left carotid arteries (principal); G81.91 Hemiplegia, unspecified affecting right dominant side; R29.701 NIHSS score 1; E86.0 Dehydration; I44.0 Atrioventricular block, first degree; I10 Essential (primary) hypertension; E11.9 Type 2 diabetes mellitus without complications; Z79.4 Long term (current) use of insulin; Z79.82 Long term (current) use of aspirin
CPT/HCPCS: 36415; 70496; 70498; 80053; 81001; 83605; 83690; 85025; 93005; 96360; 99285; Q9967; 81003; 87086

== ENCOUNTER 2019-11-03 13:28 | Outpatient (CLI) | payer MEDICARE | END 2019-11-03 13:29 | disposition home or self-care (01) | LOC: EMS 13:28 | PROVIDERS: ATTEND Surgery | DX: I65.29 Occlusion and stenosis of unspecified carotid artery (principal); R53.1 Weakness; R20.0 Anesthesia of skin | CPT/HCPCS: A0425; A0426 ==

== ENCOUNTER 2020-03-12 13:43 | Outpatient (CLI) | payer MEDICARE ==
[2020-03-12 14:11] LABS: BASOPHILS # (AUTO) 0.1 10^3/uL (0.0-0.1); BASOPHILS % (AUTO) 1.1 %; EOSINOPHILS # (AUTO) 0.3 10^3/uL (0.0-0.7); EOSINOPHILS % (AUTO) 3.7 %; HGB - HEMOGLOBIN 12.9 g/dL (14.0-18.0); LYMPHOCYTES # (AUTO) 1.4 10^3/uL (1.5-3.5); LYMPHOCYTES % (AUTO) 16.2 %; MEAN CORPUSCULAR HEMOGLOBIN 28.9 pg (27.0-31.0); MEAN CORPUSCULAR HGB CONC 32.5 g/dL (32.0-36.0); MEAN CORPUSCULAR VOLUME 88.8 fL (80.0-94.0); MEAN PLATELET VOLUME 9.6 fL (7.4-11.4); MONOCYTES # (AUTO) 0.5 10^3/uL (0.0-1.0); MONOCYTES % (AUTO) 5.6 %; NEUTROPHILS # (AUTO) 6.5 10^3/uL (1.5-6.6); NEUTROPHILS % (AUTO) 73.2 %; PLT - PLATELET COUNT 247 10^3/uL (130-450); RED BLOOD COUNT 4.47 10^6/uL (4.70-6.10); RED CELL DISTRIBUTION WIDTH 14.3 % (12.0-15.0); WHITE BLOOD COUNT 8.9 x10^3/uL (4.8-10.8)
[2020-03-12 14:23] LABS: CALCIUM 9.3 mg/dL (8.5-10.3); CREATININE 1.8 mg/dL (0.6-1.2)
[2020-03-12 14:32] LABS: INR 1.2 (0.8-1.2); PT - PROTHROMBIN TIME 12.9 secs (9.9-12.6)
== END 2020-03-12 13:44 | disposition home or self-care (01) ==
LOC: LAB 13:43
PROVIDERS: ATTEND Internal Medicine Cardiovascular Disease
DX: Z01.810 Encounter for preprocedural cardiovascular examination (principal)
CPT/HCPCS: 36415; 80048; 85025; 85610

== ENCOUNTER 2020-11-19 11:09 | Outpatient (CLI) | payer MEDICARE | END 2020-11-19 11:10 | disposition home or self-care (01) | LOC: RT 11:09 | PROVIDERS: ATTEND Internal Medicine Cardiovascular Disease | DX: R07.9 Chest pain, unspecified (principal); R06.89 Other abnormalities of breathing; R06.00 Dyspnea, unspecified | CPT/HCPCS: 36415; 80048; 83880; 93005 ==

== ENCOUNTER 2020-11-19 11:46 | Outpatient (CLI) | payer MEDICARE ==
[2020-11-19 12:15] LABS: CALCIUM 9.7 mg/dL (8.5-10.3); CREATININE 1.9 mg/dL (0.6-1.2); POTASSIUM 4.4 mmol/L (3.5-5.0)
== END 2020-11-19 11:47 | disposition home or self-care (01) ==
LOC: LAB 11:46
PROVIDERS: ATTEND Internal Medicine
DX: R06.89 Other abnormalities of breathing (principal); R06.00 Dyspnea, unspecified
CPT/HCPCS: 36415; 80048; 83880

== ENCOUNTER 2020-12-02 09:17 | Outpatient (CLI) | payer MEDICARE | END 2020-12-02 09:18 | disposition home or self-care (01) | LOC: DI 09:17 | PROVIDERS: ATTEND Internal Medicine Cardiovascular Disease | DX: I49.3 Ventricular premature depolarization (principal); I51.7 Cardiomegaly; I35.0 Nonrheumatic aortic (valve) stenosis; I87.8 Other specified disorders of veins | CPT/HCPCS: 93306 ==

== ENCOUNTER 2021-04-07 10:04 | Outpatient (CLI) | payer MEDICARE ==
--- NOTE | 2021-04-07 10:37 | XRAY Report ---
PROCEDURE: Chest 2 View X-Ray INDICATIONS: DYSPNEA TECHNIQUE: 2 view(s) of the chest. COMPARISON: None. FINDINGS: Surgical changes and devices: None. Lungs and pleura: Small bilateral pleural fluid collections. Bibasilar consolidation. Mediastinum: Mediastinal contours are normal. Heart size is normal. Bones and chest wall: No suspicious bony abnormalities. Soft tissues appear unremarkable. IMPRESSION: 1. Small bilateral pleural fluid collections. 2. Bibasilar consolidation which could represent compressive atelectasis, aspiration or pneumonia. Reviewed by: Roopa Cotton MD, PhD on 04/07/2021 10:36 AM [facility] Approved by: Roopa Cotton MD, PhD on 04/07/2021 10:36 AM [facility] Station ID: [id number]
== END 2021-04-07 10:05 | disposition home or self-care (01) ==
LOC: DI.S 10:04
PROVIDERS: ATTEND Nurse Practitioner Family
DX: R06.00 Dyspnea, unspecified (principal); J91.8 Pleural effusion in other conditions classified elsewhere; R91.8 Other nonspecific abnormal finding of lung field

== ENCOUNTER 2021-04-21 11:46 | Outpatient (CLI) | payer MEDICARE ==
[2021-04-21 14:48] LABS: BASOPHILS # (AUTO) 0.1 10^3/uL (0.0-0.1); BASOPHILS % (AUTO) 0.9 %; EOSINOPHILS # (AUTO) 0.1 10^3/uL (0.0-0.7); EOSINOPHILS % (AUTO) 1.1 %; HCT - HEMATOCRIT 35.4 % (42.0-52.0); HGB - HEMOGLOBIN 10.9 g/dL (14.0-18.0); LYMPHOCYTES # (AUTO) 0.8 10^3/uL (1.5-3.5); LYMPHOCYTES % (AUTO) 9.6 %; MEAN CORPUSCULAR HEMOGLOBIN 23.6 pg (27.0-31.0); MEAN CORPUSCULAR HGB CONC 30.8 g/dL (32.0-36.0); MEAN CORPUSCULAR VOLUME 76.6 fL (80.0-94.0); MEAN PLATELET VOLUME 9.9 fL (7.4-11.4); MONOCYTES # (AUTO) 0.4 10^3/uL (0.0-1.0); NEUTROPHILS # (AUTO) 7.1 10^3/uL (1.5-6.6); PLT - PLATELET COUNT 416 10^3/uL (130-450); RED BLOOD COUNT 4.62 10^6/uL (4.70-6.10); RED CELL DISTRIBUTION WIDTH 19.2 % (12.0-15.0); WHITE BLOOD COUNT 8.6 x10^3/uL (4.8-10.8)
[2021-04-21 15:21] LABS: % IRON SATURATION 9 % (20-50); IRON 31 ug/dL (45-182); TOTAL IRON BINDING CAPACITY 363 ug/dL (250-450); TRANSFERRIN 259 mg/dL (180-329)
== END 2021-04-21 11:47 | disposition home or self-care (01) ==
LOC: LAB.S 11:46
PROVIDERS: ATTEND Nurse Practitioner Family
DX: D50.9 Iron deficiency anemia, unspecified (principal)
CPT/HCPCS: 36415; 82728; 83540; 84466; 85025

== ENCOUNTER 2021-04-25 16:07 | Outpatient (CLI) | payer MEDICARE | END 2021-04-25 16:08 | disposition EMS.NT | LOC: EMS 16:07 | DX: K59.00 Constipation, unspecified (principal) ==

== ENCOUNTER 2021-04-25 21:34 | Emergency (ER) | payer MEDICARE ==
[2021-04-25 21:43] VITALS: BP 129/97
--- NOTE | 2021-04-25 21:51 | ED Physician Documentation ---
History of Present Illness - Stated complaint Stated Complaint: IMPACTED STOOL - Chief complaint Chief Complaint: Abd Pain - Additonal information Additional information: Patient is 86-year-old male presenting to the emergency department with chief complaint of rectal impaction. Endorses for longstanding history of chronic constipation. States takes MiraLAX and magnesium citrate at home without relief. Reports 5 days since last bowel movement. Reports has needed manual disimpaction's in the past. Was recently hospitalized for placement of a cardiac stent and states that he believes it is because that during his recent hospitalization he was not on his regular bowel regimen and that is why he is so severely constipated today. Reports enemas at home without relief. Denies fever, chills, chest pain, shortness of breath, nausea, vomiting. Review of Systems Ten Systems: 10 systems reviewed and negative Constitutional: denies: Fever Eyes: denies: Loss of vision Ears: denies: Loss of hearing Nose: denies: Rhinorrhea / runny nose Throat: denies: Dental pain / toothache Cardiac: denies: Chest pain / pressure GI: reports: Abdominal Pain, Constipation : denies: Dysuria Skin: denies: Rash PD PAST MEDICAL HISTORY - Past Medical History Cardiovascular: Hypertension, High cholesterol, Angina Respiratory: None Neuro: TIA Endocrine/Autoimmune: Type 2 diabetes GI: GERD, Other : None HEENT: None, Chronic vision loss Psych: None Musculoskeletal: Other Derm: Rosacea - Past Surgical History Past Surgical History: Yes General: Colonoscopy, Other Ortho: Spine surgery HEENT: Tonsil/Adenoidectomy - Present Medications Home Medications: Ambulatory Orders Medication Instructions Recorded Confirmed Aspirin [Aspir 81] 81 mg PO DAILY 05/15/15 05/19/15 Atorvastatin [Lipitor] 80 mg PO DAILY 05/15/15 05/19/15 Insulin Glargine,Hum.rec.anlog 30 units SQ DAILY 05/15/15 05/19/15 [Lantus Solostar] Insulin Lispro [Humalog] 7 units SQ QID 05/15/15 05/19/15 Lisinopril 20 mg PO DAILY 05/15/15 05/19/15 Omeprazole 20 mg PO DAILY 05/15/15 05/19/15 hydroCHLOROthiazide 12.5 mg PO DAILY 05/15/15 05/19/15 [Hydrochlorothiazide] Moxifloxacin HCl [Vigamox] 1 drop LEFTEYE DAILY 02/08/16 02/08/16 Nepafenac [Ilevro] 1 drop EACHEYE DAILY 02/08/16 02/08/16 prednisoLONE 1% OPHTH DROPS [Pred 1 drops EACHEYE .DAILY-BID 02/08/16 02/08/16 Forte 1% Ophth Drops] Acetaminophen [Tylenol] 650 mg PO Q4HR PRN #0 tablet 02/09/16 Prednisolone 1% Ophth Drops [Pred 1 drops RIGHTEYE DAILY 02/09/16 Forte 1% Ophth Drops] Indomethacin 50 mg PO TID #14 capsule 05/13/17 - Allergies Allergies/Adverse Reactions: Allergies Allergy/AdvReac Type Severity Reaction Status Date / Time Beta-Blockers Allergy Unknown Verified 04/25/21 21:43 (Beta-Adrenergic Bloc ezetimibe [From Vytorin] Allergy Unknown Verified 04/25/21 21:43 simvastatin [From Vytorin] Allergy Unknown Verified 04/25/21 21:43 - Social History Does the pt smoke?: No Smoking Status: Never smoker Does the pt drink ETOH?: No Does the pt have substance abuse?: No - Immunizations Immunizations are current?: Yes - POLST Patient has POLST: No PD ED PE NORMAL - General General: Alert and oriented X 3 - HEENT HEENT: Atraumatic - Neck Neck: Supple, no meningeal sign - Cardiac Cardiac: RRR, No gallop - Respiratory Respiratory: No respiratory distress, Clear bilaterally - Abdomen Abdomen: Soft, Non tender, Non distended - Male Male : Deferred - Back Back: No CVA TTP - Extremities Extremities: No deformity - Neuro Neuro: Alert and oriented X 3, 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 Afebrile, hemodynamically stable. Abdominal exam benign. Rectal exam did demonstrate a significant amount of impacted stool in the rectal vault. Manual disimpaction was performed with nursing licensed mental health professional present. This was followed subsequently with enema after which patient was able to move his bowels. He reported near complete cessation of all of his previous symptoms. On reevaluation his abdominal exam remained benign. I denied to have any suspicion for bowel obstruction at this time. Will discharge with instructions to continue his regular bowel regimen as well as to increase his intake and fiber full foods, water and encourage modest daily activity. Otherwise clear return precautions and follow-up instructions given prior to discharge. Departure - Departure Disposition: Home, Self Care Clinical Impression: Fecal impaction Condition: Good Instructions: ED Impaction Fecal Treated Comments: Thank you for allowing us to care for you today at [facility]. I am glad that you are feeling better. Please continue to take your MiraLAX daily. I also recommend increasing your intake in naturally fiber full foods. The most important step in avoiding chronic constipation is adequate fluid intake, please do increase your intake and fluids. Additionally modest physical activity daily can be very helpful in order to keep your bowels healthy. Please follow-up with your primary care doctor as needed. If it anytime you have any new or worsening symptoms please not hesitate to return to the emergency department.
== END 2021-04-25 23:37 | disposition home or self-care (01) ==
LOC: ED 21:34
DX: K56.41 Fecal impaction (principal); Z95.5 Presence of coronary angioplasty implant and graft; I10 Essential (primary) hypertension; E11.9 Type 2 diabetes mellitus without complications; Z79.4 Long term (current) use of insulin
CPT/HCPCS: 99281; 99282

== ENCOUNTER 2021-05-24 12:34 | Outpatient (CLI) | payer MEDICARE ==
--- NOTE | 2021-05-24 13:55 | Ultrasound Report ---
PROCEDURE: Duplex Ext Veins Right INDICATIONS: ACUTE RIGHT ANKLE PAIN TECHNIQUE: Real-time imaging, as well as color and pulse Doppler interrogation, were performed of the lower extr emity deep veins from the inguinal ligament to the popliteal fossa. COMPARISON: None. FINDINGS: The deep veins are normally compressible, and free of intraluminal thrombus. Color and pu lse Doppler demonstrate normal phasic intraluminal flow. There is normal augmentation response to di stal compression maneuver. IMPRESSION: No evidence of deep vein thrombosis involving the right lower extremity. Reviewed by: Roopa Cotton MD, PhD on 05/24/2021 12:54 PM [facility] Approved by: Roopa Cotton MD, PhD on 05/24/2021 12:54 PM [facility] Station ID: [id number]
--- NOTE | 2021-05-24 14:27 | Ultrasound Report ---
PROCEDURE: Duplex Lwr Ext Arterial RT INDICATIONS: ACUTE RIGHT ANKLE PAIN TECHNIQUE: Color and pulse Doppler interrogation was performed of the right lower extremity arterial system, wit h image documentation. COMPARISON: None FINDINGS: Common femoral artery: 100 cm/sec, with triphasic flow. Deep femoral artery: 36 cm/sec, with biphasic flow. Proximal superficial femoral artery: 68 cm/sec, with biphasic flow. Mid superficial femoral artery: 98 cm/sec, with triphasic flow. Distal superficial femoral artery: 44 cm/sec, with triphasic flow. Popliteal artery: 45 cm/sec, with triphasic flow. Posterior tibial artery: 72 cm/sec, with triphasic flow. Anterior tibial artery/dorsalis pedis: 52/23 cm/sec, with triphasic flow. Hines-scale imaging description: Diffuse calcified plaque. No hemodynamically significant stenosis. IMPRESSION: 1. No evidence of inflow stenotic disease. 2. Diffuse plaque without hemodynamically significant stenosis. 3. At least two-vessel runoff. Reviewed by: Rm Mims MD on 05/24/2021 2:26 PM PST Approved by: Rm Mims MD on 05/24/2021 2:26 PM PST Station ID: [id number]
== END 2021-05-24 12:35 | disposition home or self-care (01) ==
LOC: DI 12:34
PROVIDERS: ATTEND Nurse Practitioner Family
DX: M25.579 Pain in unspecified ankle and joints of unspecified foot (principal); I70.201 Unspecified atherosclerosis of native arteries of extremities, right leg

== ENCOUNTER 2022-07-25 15:35 | Outpatient (CLI) | payer MEDICARE ==
--- NOTE | 2022-07-25 15:27 | XRAY Report ---
PROCEDURE: Ankle 3 View RT INDICATIONS: SPRAIN OF RIGHT ANKLE TECHNIQUE: 3 views of the ankle were acquired. COMPARISON: None FINDINGS: Bones: Spiral fracture through the distal fibula, extending into the level of the syndesmosis. Soft tissues: No tibiotalar joint effusion. Achilles tendon appears normal. Moderate edema about t he fracture. IMPRESSION: Spiral fracture of the distal fibula, extending to the level of the syndesmosis. Reviewed by: Brad Storm on 07/25/2022 3:26 PM PDT Approved by: Brad Storm on 07/25/2022 3:26 PM PDT Station ID: [id number]
== END 2022-07-25 15:36 | disposition home or self-care (01) ==
LOC: DI.S 15:35
PROVIDERS: ATTEND Emergency Medicine
DX: S82.441A Displaced spiral fracture of shaft of right fibula, initial encounter for closed fracture (principal)

== ENCOUNTER 2022-08-02 09:58 | Outpatient (CLI) | payer MEDICARE ==
--- NOTE | 2022-08-02 12:56 | XRAY Report ---
PROCEDURE: Ankle 3 View RT INDICATIONS: RIGHT ANKLE FRACTURE TECHNIQUE: 3 views of the ankle were acquired. COMPARISON: X-ray ankle 07/25/2022 FINDINGS: Bones: There is an oblique fracture of the distal fibula and appearing to extend to the surface of th e syndesmosis. Ankle mortise is normally aligned. No suspicious bony lesions. Soft tissues: No tibiotalar joint effusion. Achilles tendon appears normal. IMPRESSION: Unchanged appearance of minimally displaced distal fibular fracture. Reviewed by: Zahra Ortega MD on 08/02/2022 12:55 PM PDT Approved by: Zahra Ortega MD on 08/02/2022 12:55 PM PDT Station ID: [id number]
== END 2022-08-02 10:00 | disposition home or self-care (01) ==
LOC: DI.WOS 09:58
PROVIDERS: ATTEND Orthopaedic Surgery
DX: S82.831D Other fracture of upper and lower end of right fibula, subsequent encounter for closed fracture with routine healing (principal)

== ENCOUNTER 2022-09-06 08:23 | Outpatient (CLI) | payer MEDICARE | END 2022-09-06 23:59 | disposition short-term general hospital (02) | LOC: EMS 08:23 | DX: S89.91XA Unspecified injury of right lower leg, initial encounter (principal); R11.0 Nausea; W18.30XA Fall on same level, unspecified, initial encounter; Y92.009 Unspecified place in unspecified non-institutional (private) residence as the place of occurrence of the external cause; Z79.01 Long term (current) use of anticoagulants | CPT/HCPCS: A0425; A0427 ==

== ENCOUNTER 2022-09-09 12:11 | Outpatient (CLI) | payer MEDICARE ==
--- NOTE | 2022-09-09 14:50 | XRAY Report ---
PROCEDURE: Ankle 3 View RT INDICATIONS: NONDISPLACE FRACTUR OF RIGHT FIBULA TECHNIQUE: 3 views of the ankle were acquired. COMPARISON: 08/02/2022 FINDINGS: Bones: Bone callus formation about the distal fibular fracture. Plantar and Achilles calcaneal inser tional enthesophytes. Soft tissues: Small tibiotalar joint effusion. Achilles tendon appears normal. IMPRESSION: Interval healing of the distal fibular fracture. Reviewed by: Brad Storm on 09/09/2022 2:48 PM PDT Approved by: Brad Storm on 09/09/2022 2:48 PM PDT Station ID: [id number]
== END 2022-09-09 12:12 | disposition home or self-care (01) ==
LOC: DI.S 12:11
PROVIDERS: ATTEND Orthopaedic Surgery
DX: S82.64XD Nondisplaced fracture of lateral malleolus of right fibula, subsequent encounter for closed fracture with routine healing (principal)

== ENCOUNTER 2022-10-12 12:40 | Outpatient (CLI) | payer MEDICARE ==
--- NOTE | 2022-10-12 16:52 | DEXA Report ---
PROCEDURE: Dexa Spine and/or Hip INDICATIONS: HIST OF FRAGILLITY FX TECHNIQUE: Dual energy x-ray absorptiometry (DXA) was performed on a [employer] System. Regions measur ed are the AP Spine, femoral neck, and if needed forearm. COMPARISON: None FINDINGS: Lumbar Spine: Bone Mineral Density 1.6 g/cm/cm,T score 3.4. Normal bone density Left Femoral Neck: Bone Mineral Density 0.9 g/cm/cm, T score -1.1. Osteopenia Impression: By WHO criteria, this patient has normal lumbar spine bone density and left femoral neck osteopenia. Patients with diagnosis of osteoporosis or osteopenia should have regular bone mineral density assess ment. For those eligible for Medicare, routine testing is allowed once every 2 years. Testing frequ ency can be increased for patients who have rapidly progressing disease or for those who are receivin g medical therapy to restore bone mass. Reviewed by: Tristian Castellano MD on 10/12/2022 4:50 PM PDT Approved by: Tristian Castellano MD on 10/12/2022 4:50 PM PDT Station ID: [id number]
== END 2022-10-12 12:41 | disposition home or self-care (01) ==
LOC: DI 12:40
PROVIDERS: ATTEND Nurse Practitioner Family
DX: Z87.310 Personal history of (healed) osteoporosis fracture (principal); M85.88 Other specified disorders of bone density and structure, other site

== ENCOUNTER 2023-05-05 11:13 | Outpatient (CLI) | payer MEDICARE ==
--- NOTE | 2023-05-05 12:30 | XRAY Report ---
PROCEDURE: Lumbar Spine 2-3V INDICATIONS: LUMBAR SPINAL STENOSIS TECHNIQUE: 2 views of the lumbar spine were acquired. COMPARISON: None. FINDINGS: Bones: 5 akg-utv-cyxclvo vertebrae are present. Minimal levocurvature of the lumbar spine. Grade 1 a nterolisthesis of L3 on L4. Diffusely decreased osseous mineralization. There are multilevel degenera tive changes of the lumbar spine with facet arthropathy and disc height loss with degenerative endpla te changes and marginal spurring. . This is most pronounced at L4-5 and L5-S1. No vertebral body comp ression fractures. No suspicious bony lesions. Soft tissues: Overlying bowel gas pattern is normal. No suspicious soft tissue calcifications. Righ t upper quadrant surgical clips. Atherosclerotic vascular calcifications. IMPRESSION: Multilevel degenerative changes of the lumbar spine as described above. Reviewed by: Arthur Hui MD on 05/05/2023 12:29 PM PST Approved by: Arthur Hui MD on 05/05/2023 12:29 PM PST Station ID: [id number]
== END 2023-05-05 11:14 | disposition home or self-care (01) ==
LOC: DI.S 11:13
PROVIDERS: ATTEND Nurse Practitioner Family
DX: M47.816 Spondylosis without myelopathy or radiculopathy, lumbar region (principal); M47.817 Spondylosis without myelopathy or radiculopathy, lumbosacral region; M43.16 Spondylolisthesis, lumbar region

== ENCOUNTER 2023-05-17 14:55 | Outpatient (CLI) | payer MEDICARE | END 2023-05-17 14:56 | disposition home or self-care (01) | LOC: DI 14:55 | PROVIDERS: ATTEND Internal Medicine Cardiovascular Disease | DX: I50.22 Chronic systolic (congestive) heart failure (principal); I35.0 Nonrheumatic aortic (valve) stenosis | CPT/HCPCS: 93306 ==